=== PATIENT | female | born 1980 | race Caucasian/White ===

== ENCOUNTER 2017-10-12 16:56 | Emergency (ER) | payer OTHER ==
[~2017-10-12] VITALS: Ht 165.1 cm; Wt 83.5 kg
[2017-10-12 17:02] VITALS: TEMP 36.3; Ht 165.1 cm; Wt 83.5 kg
[2017-10-12] MEDS ORDERED: XYLOCAINE 1%/SOD BICARB 20 ML VIAL INFIL ONE (17:30)
[2017-10-12] MEDS ORDERED: PRVHFAIN INH (18:11)
[2017-10-12] MEDS ORDERED: MONT1TAB3 PO (18:11)
[2017-10-12] MEDS ORDERED: CLON0.5T3 PO (18:11)
[2017-10-12] MEDS ORDERED: FEXO1TAB46 PO (18:11)
[2017-10-12] MEDS ORDERED: PANT40TA PO (18:11)
[2017-10-12] MEDS ORDERED: PRENTAB26 PO (18:11)
[2017-10-12] MEDS ORDERED: VENL75CA PO (18:11)
[2017-10-12] MEDS ORDERED: FLUT230A INH (18:11)
[2017-10-12] MEDS ORDERED: FLUT0.15 NAE (18:11)
[2017-10-12 18:23] VITALS: BP 118/80; PULSE 68; O2SAT 99
--- NOTE | 2017-10-12 19:08 | EMERGENCY ROOM VISIT NOTE ---
History First contact with patient: 17:04 Chief Complaint: LACERATION/CUT (SUT/DERMABOND) Stated Complaint: CUT FINGER Nursing Triage Summary: patient states she was using a pocket knife to get a printer jam undone. caused laceration to left 3rd finger History of Present Illness The patient is a 37 year old female who presents to the Emergency Room with complaints of a laceration to her left third finger. The patient was attempting to remove a paper jam from a printer with a pocketknife, an accident and cut her finger. The patient reports mild bleeding from the wound, but otherwise denies any paresthesias, numbness or loss of function of the finger. Tetanus immunization is up-to-date. The patient rates her discomfort a 2 out of 10 on my exam. Review of Systems 6 system review was performed and was negative except for pertinent positives and negatives as indicated in history of present illness Past Medical/Surgical History Medical Problems: (1) Acne (2) Asthma (3) GERD (gastroesophageal reflux disease) (4) IBS (irritable bowel syndrome) Surgical Problems: (1) History of tonsillectomy Family History FH: cancer FH: diabetes mellitus FH: hypertension FH: seizures Social History Smoking Status: Never Smoker Alcohol Use: none Drug Use: none Marital Status: Occupation Status: employed Current/Historical Medications Scheduled Clonazepam (Klonopin), 0.5 MG PO AMHS Fexofenadine Hcl (Marissa), 180 MG PO QAM Fluticasone Propionate (Nasal) (Flonase Allergy Relief), 1 SPRAY LOBITO AMHS Fluticasone-Salmeterol 230/21 Mcg (Advair Hfa 230/21 Mcg), 2 PUFFS INH BID Montelukast Sodium (Singulair), 10 MG PO HS Multivit/Min/Iron/Fol Ac/Pren ( Vitamin), 1 TAB PO QAM Pantoprazole (Protonix), 40 MG PO HS Venlafaxine Hcl (Effexor Xr), 75 MG PO QAM Scheduled PRN Albuterol (Ventolin Hfa), 2 PUFFS INH UD PRN for SOB/Wheezing Physical Exam Vital Signs Date Time Temp Pulse Resp B/P (MAP) Pulse Ox O2 Delivery O2 Flow Rate FiO2 10/12/17 18:23 68 16 118/80 99 10/12/17 17:02 36.3 69 18 131/82 100 Physical Exam CONSTITUTIONAL: Healthy and well nourished. Alert and oriented X 3 with positive affect. HEENT: Normocephalic, atraumatic. Pupils equal, round and reactive. NECK: Full active range of motion without discomfort. MUSCULOSKELETAL: Examination of the left third finger shows a 1 cm laceration near the dorsal DIP joint. The patient is able to flex and extend the finger. Capillary refill is less than 2 seconds. INTEGUMENTARY: No rash or other significant dermatologic conditions noted. NEUROLOGIC: Left third fingertip is sensory intact. Medical Decision & Procedures Procedure Left third finger laceration repair was performed under digital block anesthesia after receiving verbal consent from the patient. Using buffered 1% lidocaine without epinephrine, good digital block anesthesia was administered. The wound was then peripherally cleansed with iodine, then copiously pressure irrigated with normal saline. In sterile fashion, the wound was then explored to show no evidence for joint capsule or tendon involvement. The wound was then approximated using 5-0 nylon simple interrupted sutures 3. Bacitracin dressing was applied. ED Course Patient history and physical exam were performed. Nurse's notes were reviewed. Vital signs were reviewed normal. I did discuss treatment of this laceration , including allowing the wound to heal by secondary intention versus primary closure with sutures. I did discuss the risks and benefits of each decision. The patient elected suture repair. Suture repair was performed under digital block anesthesia. The patient was provided additional verbal and written wound care instructions. Ice and elevation for swelling. Ibuprofen and Tylenol if needed for pain. Suture removal in 10-14 days, or seek reevaluation sooner for any signs of wound infection. She was happy with plan of care, voiced understanding of all discharge instructions, and denied any pain at the time of discharge. Medical Decision Medication Reconcilliation Current Medication List: was personally reviewed by me Blood Pressure Screening Patient's blood pressure: Normal blood pressure Impression Primary Impression: Laceration of left middle finger Departure Information Dispostion Home / Self-Care Forms HOME CARE DOCUMENTATION FORM, IMPORTANT VISIT INFORMATION Patient Instructions My [facility] Additional Instructions Keep wound clean and dry. Do not allow any crusting or dried blood to accumulate on sutures. If this occurs, use a 1:1 solution of hydrogen peroxide/ water on a Q-tip to clean the wound. Use an antibiotic ointment for 3-4 days, then let wound dry. Suture removal in 10-14 days. Return sooner for any signs of infection (increasing redness, swelling, drainage). Ice and elevate for swelling and pain. Ibuprofen 600 mg and Tylenol 1000 mg every 6 hrs as needed for pain. Problem Qualifiers Primary Impression: Laceration of left middle finger Encounter type: initial encounter Damage to nail status: without damage Foreign body presence: without foreign body Qualified Codes: S61.213A - Laceration without foreign body of left middle finger without damage to nail, initial encounter
== END 2017-10-12 18:24 | disposition home or self-care (01) ==
LOC: C.EDB 16:58 → C.EDD 18:24
DX: S61.213A Laceration without foreign body of left middle finger without damage to nail, initial encounter (principal); W26.8XXA Contact with other sharp object(s), not elsewhere classified, initial encounter; Y93.89 Activity, other specified; J45.909 Unspecified asthma, uncomplicated; K21.9 Gastro-esophageal reflux disease without esophagitis; K58.9 Irritable bowel syndrome, unspecified; Z80.9 Family history of malignant neoplasm, unspecified; Z83.3 Family history of diabetes mellitus; Z82.49 Family history of ischemic heart disease and other diseases of the circulatory system; Z82.0 Family history of epilepsy and other diseases of the nervous system; Z79.899 Other long term (current) drug therapy

== ENCOUNTER 2018-01-19 17:08 | Emergency (ER) | payer OTHER ==
[~2018-01-19] VITALS: Ht 162.6 cm; Wt 84.6 kg
[~2018-01-19 17:08] MED LIST: CLON0.5T3 PO; FEXO1TAB46 PO; FLUT0.15 NAE; FLUT230A INH; MONT1TAB3 PO; PANT40TA PO; PRENTAB26 PO; PRVHFAIN INH; VENL75CA PO
[2018-01-19 17:12] VITALS: TEMP 36.5; Ht 162.6 cm; Wt 84.6 kg
[2018-01-19] MEDS ORDERED: ALBUT/IPRATROP 3MG/0.5MG NEB 3 ML VIAL INH STA (17:45)
--- NOTE | 2018-01-19 17:50 | EMERGENCY ROOM VISIT NOTE ---
History Report prepared by Carlos A: Tyler Arango Under the Supervision of: Dr. Rubi Thompson D.O. First contact with patient: 17:16 Chief Complaint: SORETHROAT Stated Complaint: SORE THROAT,HEADACHE,CHEST CONGESTION History of Present Illness The patient is a 37 year old female who presents to the Emergency Room with complaints of cough and cold symptoms for the past several weeks and worse in the last 2 days. She states that she has also been having chest tightness, nausea, and a headache. The patient states that two weeks ago she had similar symptoms and was seen at an urgent care, and they told her it was an asthma attack, though she states that she does not feel like her usual asthma attacks which presents as shortness breath. She states that she used her inhaler today for the first time in a while since her asthma is well controlled. The patient notes that a week and a half ago she saw her PCP and was told that it was viral , and she was given prednisone, Tessalon Perles, and azithromycin. She additionally notes that a week ago she lost her voice and had laryngitis, and she got another dose of a prednisone taper that finished two days ago and cefdinir which she finished yesterday. The patient states that she has sick coworkers with flu and pneumonia, and she is around other sick people at her job. She denies any vomiting, diarrhea, fever, and chills. The patient states that her cough is dry, though sometimes it can be productive while brushing her teeth. She reports that she has a history of IBS as well as asthma. She denies any family history of asthma. The patient states that she has currently been having a lot of stress. Source of History: patient Onset: two days ago Position: throat Quality: other (sore) Timing: other (persistent) Associated Symptoms: + headache, + cough, + nausea, No fevers, No chills, No vomiting, No diarrhea Note: Associated symptoms: Chest tightness Review of Systems See HPI for pertinent positives & negatives. A total of 10 systems reviewed and were otherwise negative. Past Medical & Surgical Medical Problems: (1) Acne (2) Asthma (3) GERD (gastroesophageal reflux disease) (4) IBS (irritable bowel syndrome) Surgical Problems: (1) History of tonsillectomy Family History FH: cancer FH: diabetes mellitus FH: hypertension FH: seizures Social History Smoking Status: Never Smoker Alcohol Use: none Drug Use: none Marital Status: Occupation Status: employed Current/Historical Medications Scheduled Clonazepam (Klonopin), 0.5 MG PO AMHS Fexofenadine Hcl (Marissa), 180 MG PO QAM Fluticasone-Salmeterol 230/21 Mcg (Advair Hfa 230/21 Mcg), 2 PUFFS INH BID Montelukast Sodium (Singulair), 10 MG PO HS Multivit/Min/Iron/Fol Ac/Pren ( Vitamin), 1 TAB PO QAM Pantoprazole (Protonix), 40 MG PO HS Venlafaxine Hcl (Effexor Xr), 75 MG PO QAM Scheduled PRN Albuterol (Ventolin Hfa), 2 PUFFS INH UD PRN for SOB/Wheezing Fluticasone Propionate (Nasal) (Flonase Allergy Relief), 1 SPRAY LOBITO AMHS PRN for CONGESTION Allergies Coded Allergies: Amoxicillin (Verified Allergy, Intermediate, Nausea/Vomiting, 01/19/18) Clarithromycin (Verified Allergy, Intermediate, Diarrhea, 01/19/18) Clavulanic Acid (Verified Allergy, Intermediate, Nausea/Vomiting, 01/19/18) Moxifloxacin (Verified Allergy, Intermediate, Lightheaded, 01/19/18) Physical Exam Vital Signs Date Time Temp Pulse Resp B/P (MAP) Pulse Ox O2 Delivery O2 Flow Rate FiO2 01/19/18 20:02 99 16 121/84 97 01/19/18 19:54 99 16 121/84 97 Room Air 01/19/18 18:13 102 17 113/85 100 Room Air 01/19/18 17:12 36.5 112 18 121/83 96 Room Air Physical Exam GENERAL: alert, well appearing, well nourished, no distress, non-toxic, anxious EYE EXAM: normal conjunctiva, PERRL and EOM's grossly intact OROPHARYNX: no exudate, no erythema, lips, buccal mucosa, and tongue normal and mucous membranes are moist NECK: supple, no nuchal rigidity, no adenopathy, non-tender LUNGS: Mildly coarse at bilateral bases. Normal chest wall mechanics, no w/r/r HEART: no murmurs, S1 normal and S2 normal ABDOMEN: abdomen soft, non-tender, normo-active bowel sounds, no masses, no rebound or guarding. BACK: Back is symmetrical on inspection and there is no deformity, no midline tenderness, no CVA tenderness. SKIN: no rashes and no bruising UPPER EXTREMITIES: upper extremities are grossly normal. LOWER EXTREMITIES: No pitting edema. NEURO EXAM: Normal sensorium, cranial nerves II-XII grossly intact, normal speech, no gross weakness of arms, no gross weakness of legs. Medical Decision & Procedures ER Provider Diagnostic Interpretation: Radiology results have been interpreted by the radiologist and reviewed by me. CHEST 2 VIEWS ROUTINE CLINICAL HISTORY: cough, sob dyspnea COMPARISON STUDY: No previous studies for comparison. FINDINGS: The bones soft tissues and hemidiaphragms are normal. The cardiomediastinal silhouette is normal. The lungs are clear. The pulmonary vasculature is normal. IMPRESSION: Negative chest. The above report was generated using voice recognition software. It may contain grammatical, syntax or spelling errors. Electronically signed by: Mick Li M.D. 01/19/2018 6:14 PM Dictated Date/Time: 01/19/2018 6:14 PM Laboratory Results 01/19/18 17:55 Red Blood Count 5.03, Mean Corpuscular Volume 87.5, Mean Corpuscular Hemoglobin 30.4, Mean Corpuscular Hemoglobin Concent 34.8, Mean Platelet Volume 10.1, Neutrophils (%) (Auto) 66.5, Lymphocytes (%) (Auto) 19.8, Monocytes (%) (Auto) 12.1, Eosinophils (%) (Auto) 0.2, Basophils (%) (Auto) 0.5, Neutrophils # (Auto ) 6.68, Lymphocytes # (Auto) 1.99, Monocytes # (Auto) 1.21, Eosinophils # (Auto ) 0.02, Basophils # (Auto) 0.05 01/19/18 17:55 Test 01/19/18 17:55 White Blood Count 10.04 K/uL (4.8-10.8) Red Blood Count 5.03 M/uL (4.2-5.4) Hemoglobin 15.3 g/dL (12.0-16.0) Hematocrit 44.0 % (37-47) Mean Corpuscular Volume 87.5 fL (80-100) Mean Corpuscular Hemoglobin 30.4 pg (25-34) Mean Corpuscular Hemoglobin Concent 34.8 g/dl (32-36) Platelet Count 357 K/uL (130-400) Mean Platelet Volume 10.1 fL (7.4-10.4) Neutrophils (%) (Auto) 66.5 % Lymphocytes (%) (Auto) 19.8 % Monocytes (%) (Auto) 12.1 % Eosinophils (%) (Auto) 0.2 % Basophils (%) (Auto) 0.5 % Neutrophils # (Auto) 6.68 K/uL (1.4-6.5) Lymphocytes # (Auto) 1.99 K/uL (1.2-3.4) Monocytes # (Auto) 1.21 K/uL (0.11-0.59) Eosinophils # (Auto) 0.02 K/uL (0-0.5) Basophils # (Auto) 0.05 K/uL (0-0.2) RDW Standard Deviation 45.6 fL (36.4-46.3) RDW Coefficient of Variation 14.4 % (11.5-14.5) Immature Granulocyte % (Auto) 0.9 % Immature Granulocyte # (Auto) 0.09 K/uL (0.00-0.02) D-Dimer 460 ug/L FEU (0-500) Anion Gap 6.0 mmol/L (3-11) Est Creatinine Clear Calc Drug Dose 125.2 ml/min Estimated GFR () 132.6 Estimated GFR (Non- 114.4 BUN/Creatinine Ratio 11.5 (10-20) Calcium Level 9.2 mg/dl (8.5-10.1) Total Bilirubin 0.6 mg/dl (0.2-1) Aspartate Amino Transf (AST/SGOT) 15 U/L (15-37) Alanine Aminotransferase (ALT/SGPT) 30 U/L (12-78) Alkaline Phosphatase 65 U/L (45-117) Troponin I < 0.015 ng/ml (0-0.045) Pro-B-Type Natriuretic Peptide 19 pg/ml (0-450) Total Protein 7.7 gm/dl (6.4-8.2) Albumin 3.7 gm/dl (3.4-5.0) Globulin 4.0 gm/dl (2.5-4.0) Albumin/Globulin Ratio 0.9 (0.9-2) Human Chorionic Gonadotropin, Qual NEG (NEG) Laboratory results per my review. Medications Administered Medications (Trade) Dose Ordered Sig/Chris Route Start Time Stop Time Status Last Admin Dose Admin Albuterol/ Ipratropium (Duoneb) 3 ml NOW STAT INH 01/19/18 17:45 01/19/18 17:46 DC 01/19/18 18:12 3 ML ECG Per My Interpretation Indication: chest pain Rate (beats per minute): 101 Rhythm: sinus tachycardia Findings: no acute ischemic change, no ectopy, other (Normal interval. Normal axis) ED Course 1715: The patient was evaluated in room C4. A complete history and physical exam was performed. 1744: DuoNeb 3ml INH 1840: Upon reevaluation, the patient is feeling better. I discussed the findings and the treatment plan with the patient. She verbalizes agreement and understanding. She was discharged home. Medical Decision Differential diagnosis: Etiologies such as viral syndrome, tonsillitis, streptococcal pharyngitis, mononucleosis, peritonsillar abscess, retropharyngeal abscess, otitis, pneumonia , influenza, as well as others were entertained. Discussed with patient possible viral URI. Did not feel patient warranted repeat antibiotics and given 2 recent courses would have been covered for both typical and atypical causes. Patient did not want any additional steroids to help with her asthma. Patient did feel improved following administration of nebulizer treatment here and she was encouraged to use her inhalers and nebulizers at home which she has not been doing throughout the course of her symptoms. Patient afebrile here with stable vital signs, never hypoxic and no increased work of breathing. Other labs and imaging reassuring. No focal consolidation noted. Have a low suspicion for PE and do not feel she has underlying cardiac etiology contributing to her shortness of breath. Encourage patient to continue her respiratory treatments at home, discuss follow-up with family doctor as a precaution and possible need for pulmonology evaluation after symptoms continue. Discussed symptoms to watch and return for, she verbalized understanding was agreeable with plan. Medication Reconcilliation Current Medication List: was personally reviewed by me Blood Pressure Screening Patient's blood pressure: Normal blood pressure Impression Primary Impression: URI (upper respiratory infection) Additional Impressions: Cough Asthma Scribe Attestation The scribe's documentation has been prepared under my direction and personally reviewed by me in its entirety. I confirm that the note above accurately reflects all work, treatment, procedures, and medical decision making performed by me. Departure Information Dispostion Home / Self-Care Referrals Alexia Andrews PA (PCP) Forms HOME CARE DOCUMENTATION FORM, IMPORTANT VISIT INFORMATION Patient Instructions My [facility] Additional Instructions Please use your MDI or nebulizer treatments at home for any trouble breathing, wheezing, bouts of coughing, or chest tightness. You may use Tylenol and ibuprofen as needed for pain. Please monitor for any GERD/reflux as this can contribute to asthma exacerbations also. Please try to avoid any other potential triggers for your asthma and avoid additional sick contacts. Please stay well-hydrated. Please call follow-up with your family doctor if your symptoms persist as you may be referred to a front elevator operator for additional testing or medication. Please continue your other routine medications as prescribed. If you have any fevers or chills, worsening chest pain, increased trouble breathing, no response to respiratory treatments at home, noticed blood in her sputum, develop vomiting, you have any other new concerns, please return the emergency room. Problem Qualifiers Primary Impression: URI (upper respiratory infection) URI type: unspecified URI Qualified Codes: J06.9 - Acute upper respiratory infection, unspecified Additional Impressions: Asthma Asthma severity: mild Asthma persistence: intermittent Asthma complication type: unspecified Qualified Codes: J45.20 - Mild intermittent asthma, uncomplicated
[2018-01-19 18:07] LABS: BASO % 0.5 %; BASO ABS # 0.05 K/uL (0-0.2); EOS % 0.2 %; EOS ABS # 0.02 K/uL (0-0.5); HEMOGLOBIN 15.3 g/dL (12.0-16.0); IG# 0.09 K/uL (0.00-0.02); LYMPH % 19.8 %; LYMPH ABS # 1.99 K/uL (1.2-3.4); MEAN CELL VOLUME 87.5 fL (80-100); MEAN CORPUSCULAR HEMOGLOBIN 30.4 pg (25-34); MEAN CORPUSCULAR HGB CONC 34.8 g/dl (32-36); MEAN PLATELET VOLUME 10.1 fL (7.4-10.4); MONO % 12.1 %; MONO ABS # 1.21 K/uL (0.11-0.59); NEUT % 66.5 %; NEUT ABS # 6.68 K/uL (1.4-6.5); PLATELET COUNT 357 K/uL (130-400); RED CELL DISTRIBUTION WIDTH CV 14.4 % (11.5-14.5); RED CELL DISTRIBUTION WIDTH SD 45.6 fL (36.4-46.3); WHITE BLOOD COUNT 10.04 K/uL (4.8-10.8)
--- NOTE | 2018-01-19 18:16 | DIAGNOSTIC IMAGING REPORT ---
CHEST 2 VIEWS ROUTINE CLINICAL HISTORY: cough, sob dyspnea COMPARISON STUDY: No previous studies for comparison. FINDINGS: The bones soft tissues and hemidiaphragms are normal. The cardiomediastinal silhouette is normal. The lungs are clear. The pulmonary vasculature is normal. IMPRESSION: Negative chest. The above report was generated using voice recognition software. It may contain grammatical, syntax or spelling errors. Electronically signed by: Mick Li M.D. 01/19/2018 6:14 PM Dictated Date/Time: 01/19/2018 6:14 PM
[2018-01-19 18:24] LABS: ALBUMIN 3.7 gm/dl (3.4-5.0); ALT/SGPT 30 U/L (12-78); AST/SGOT 15 U/L (15-37); BLOOD UREA NITROGEN 8 mg/dl (7-18); CALCIUM 9.2 mg/dl (8.5-10.1); CARBON DIOXIDE 27 mmol/L (21-32); CREATININE 0.66 mg/dl (0.60-1.20); GLUCOSE 79 mg/dl (70-99); POTASSIUM 3.9 mmol/L (3.5-5.1); SODIUM 136 mmol/L (136-145)
[2018-01-19 18:29] LABS: ALKALINE PHOSPHATASE 65 U/L (45-117); TOTAL PROTEIN 7.7 gm/dl (6.4-8.2)
[2018-01-19 20:02] VITALS: BP 121/84; PULSE 99; O2SAT 97
== END 2018-01-19 20:02 | disposition home or self-care (01) ==
LOC: C.EDB 17:09 → C.EDC 20:02
DX: J06.9 Acute upper respiratory infection, unspecified (principal); J45.20 Mild intermittent asthma, uncomplicated; K58.9 Irritable bowel syndrome, unspecified; K21.9 Gastro-esophageal reflux disease without esophagitis; Z80.9 Family history of malignant neoplasm, unspecified; Z83.3 Family history of diabetes mellitus; Z82.49 Family history of ischemic heart disease and other diseases of the circulatory system; Z82.0 Family history of epilepsy and other diseases of the nervous system; Z79.899 Other long term (current) drug therapy; Z88.0 Allergy status to penicillin; Z88.1 Allergy status to other antibiotic agents; Z88.8 Allergy status to other drugs, medicaments and biological substances